=== PATIENT | female | born 1995 | race Caucasian/White ===

== ENCOUNTER 2017-09-30 10:33 | Outpatient (CLI) | payer OTHER ==
[2017-09-30] MEDS ORDERED: ISOVUE-370 76%-LOCM 1 ML ONE (16:32)
== END 2017-09-30 10:34 | disposition home or self-care (01) ==
LOC: BICCT 10:33
PROVIDERS: ATTEND Family Medicine
DX: R07.89 Other chest pain (principal)
CPT/HCPCS: 71260